=== PATIENT | male | born 1970 | race African-American/Black ===

== ENCOUNTER 2016-09-04 06:13 | Emergency (ER) | payer SELFPAY ==
[~2016-09-04] VITALS: Ht 185.4 cm; Wt 85.0 kg
[2016-09-04 06:16] VITALS: BP 160/106; PULSE 77; RESP 16; TEMP 98; O2SAT 98
[2016-09-04] MEDS ORDERED: SODIUM CHLOR 0.9% 1000 ML INJ 1,000 ML IV SCH (06:16)
--- NOTE | 2016-09-04 06:19 | PD ---
HPI Chief Complaint: abdominal pain Time Seen by Provider: 06:15 Travel History International Travel<30 days: No Contact w/Intl Traveler<30days: No Traveled to known affect area: No History of Present Illness HPI 45-year-old male with history of pancreatitis, previous ulcer, presents to the ER today for 2 days history of right sided abdominal pains which she currently rates at a 10 out of 10 at its worse, worse with movement and touch, that started on its own. He denies any nausea, vomiting, fevers, diarrhea, or other symptoms. He did notice that he has been having some blood in his stools when he makes a bowel movement for the past month. He denies any other issues. Modifying Factors: None Associated Signs & Symptoms: Right sided abdominal pains Risk Factors: None PFSH Past Medical History Arthritis: Yes Autoimmune Disease: No Blood Disorders: No Anxiety: No Heart Rhythm Problems: No Cancer: No Cardiovascular Problems: Yes High Cholesterol: No Chemotherapy: No Congestive Heart Failure: No Cerebrovascular Accident: No Diabetes: No Diminished Hearing: No Endocrine: No Gastrointestinal Disorders: No GERD: No Glaucoma: No Genitourinary: No Hepatitis: No Hiatal Hernia: No Hypertension: Yes Immune Disorder: No Implanted Vascular Access Dvce: No Musculoskeletal: No Neurologic: Yes (DT'S) Psychiatric: No Reproductive: No Respiratory: No Myocardial Infarction: No Pancreatitis: Yes Radiation Therapy: No Seizures: Yes Thyroid Disease: No Ulcer: Yes PNEUMOCCOCAL Vaccine (Year): 2 Past Surgical History Genitourinary Surgery: No Oral Surgery: Yes (JAW) Pacemaker: No Other Surgery: No Social History Alcohol Use: Yes (1 CASE BEER DAILY-HAD 12 6OZ CANS OF BEERS TONIGHT) Tobacco Use: Yes (1 PPD) Substance Use: No Allergies-Medications (Allergen,Severity, Reaction): Coded Allergies: Penicillin (Verified Allergy, Mild, Rash, 09/04/16) Naproxen (Verified Adverse Reaction, Severe, N/V, 09/04/16) Reported Meds & Prescriptions Reported Meds & Active Scripts Active No Active Prescriptions or Reported Medications Review of Systems Except as stated in HPI: all other systems reviewed are Neg Physical Exam Narrative GENERAL: Well-developed middle age -[place] male patient currently in mild distress. SKIN: Focused skin assessment warm/dry. HEAD: Atraumatic. Normocephalic. EYES: Pupils equal and round. No scleral icterus. No injection or drainage. ENT: No nasal bleeding or discharge. Mucous membranes pink and moist. NECK: Trachea midline. No JVD. CARDIOVASCULAR: Regular rate and rhythm. No murmur appreciated. RESPIRATORY: No accessory muscle use. Clear to auscultation. Breath sounds equal bilaterally. GASTROINTESTINAL: Abdomen soft, right sided abdominal tenderness without guarding or rebound, nondistended. Hepatic and splenic margins not palpable. MUSCULOSKELETAL: No obvious deformities. No clubbing. No cyanosis. No edema. RECTAL EXAM: No masses or tenderness, stool is brown. Hemoccult negative. NEUROLOGICAL: Awake and alert. No obvious cranial nerve deficits. Motor grossly within normal limits. Normal speech. PSYCHIATRIC: Appropriate mood and affect; insight and judgment normal. Data Data Last Documented VS Vital Signs Date Time Temp Pulse Resp B/P Pulse Ox O2 Delivery O2 Flow Rate FiO2 09/04/16 06:21 98 Room Air 09/04/16 06:16 98.0 77 16 160/106 Orders Complete Blood Count With Diff (09/04/16 06:16) Comprehensive Metabolic Panel (09/04/16 06:16) Lipase (09/04/16 06:16) Urinalysis - C+S If Indicated (09/04/16 06:16) Ct Abd/Pel W Iv Contrast(Rout) (09/04/16 06:16) Iv Access Insert/Monitor (09/04/16 06:16) Ecg Monitoring (09/04/16 06:16) Oximetry (09/04/16 06:16) Ondansetron Inj (Zofran Inj) (09/04/16 06:30) Sodium Chlor 0.9% 1000 Ml Inj (Ns 1000 M (09/04/16 06:16) Sodium Chloride 0.9% Flush (Ns Flush) (09/04/16 06:30) Hydromorphone Pf Inj (Dilaudid Pf Inj) (09/04/16 06:30) Labs Laboratory Tests Test 09/04/16 06:22 White Blood Count 5.0 TH/MM3 Red Blood Count 3.90 MIL/MM3 Hemoglobin 12.7 GM/DL Hematocrit 36.5 % Mean Corpuscular Volume 93.5 FL Mean Corpuscular Hemoglobin 32.5 PG Mean Corpuscular Hemoglobin 34.8 % Concent Red Cell Distribution Width 13.3 % Platelet Count 263 TH/MM3 Mean Platelet Volume 7.7 FL Neutrophils (%) (Auto) 49.1 % Lymphocytes (%) (Auto) 34.2 % Monocytes (%) (Auto) 13.1 % Eosinophils (%) (Auto) 3.0 % Basophils (%) (Auto) 0.6 % Neutrophils # (Auto) 2.5 TH/MM3 Lymphocytes # (Auto) 1.7 TH/MM3 Monocytes # (Auto) 0.7 TH/MM3 Eosinophils # (Auto) 0.1 TH/MM3 Basophils # (Auto) 0.0 TH/MM3 CBC Comment DIFF FINAL Differential Comment MDM Medical Decision Making Medical Screen Exam Complete: Yes Emergency Medical Condition: Yes Medical Record Reviewed: Yes Interpretation(s) Laboratory Tests Test 09/04/16 06:22 Red Blood Count 3.90 MIL/MM3 (4.50-5.90) Hemoglobin 12.7 GM/DL (13.0-17.0) Hematocrit 36.5 % (39.0-51.0) Monocytes (%) (Auto) 13.1 % (0.0-8.0) Differential Diagnosis Right sided abdominal painsrenal colic versus pyelonephritis versus cholecystitis versus musculoskeletal versus appendicitis Narrative Course Lab work and CAT scans were ordered for the patient. Pain medications, IV fluids and nausea medications were ordered for the patient. HemaPrompt Point of Care Internal Pos. & Neg. Controls: Passed Fecal Specimen Occult Blood: Negative Physician Communication Physician Communication Case is signed out to oncoming physician, Dr. Murcia, awaiting workup and CAT scan. Disposition based on workup. Diagnosis Primary Impression: Abdominal pain Scripts No Active Prescriptions or Reported Meds Shantanu Pickett MD September 04, 2016 06:18
[2016-09-04 06:21] VITALS: O2SAT 98
[2016-09-04] MEDS ORDERED: SODIUM CHLORIDE 0.9% FLUSH 10 ML FLUSH IV FLUSH PRN (06:30)
[2016-09-04] MEDS ORDERED: ONDANSETRON HCL 4 MG/2 ML VIAL IVP ONE (06:30)
[2016-09-04] MEDS ORDERED: HYDROmorphone HCL PF 1 MG/ML VIAL IVS ONE (06:30)
[2016-09-04 06:54] LABS: AUTOMATED NEUTROPHIL # 2.5 TH/MM3 (1.8-7.7); BASOPHIL % 0.6 % (0.0-2.0); EOSINOPHIL # 0.1 TH/MM3 (0-0.4); HEMATOCRIT 36.5 % (39.0-51.0); HEMO FLAGS DIFF FINAL; LYMPH % 34.2 % (9.0-44.0); LYMPHOCYTE # 1.7 TH/MM3 (1.0-4.8); MEAN CELL VOLUME 93.5 FL (80.0-100.0); MEAN CORPUSCULAR HEMOGLOBIN 32.5 PG (27.0-34.0); MEAN CORPUSCULAR HGB CONC 34.8 % (32.0-36.0); MONO % 13.1 % (0.0-8.0); NEUT % 49.1 % (16.0-70.0); PLATELET COUNT 263 TH/MM3 (150-450); RED CELL DISTRIBUTION WIDTH 13.3 % (11.6-17.2)
[2016-09-04 07:01] LABS: BLOOD, URINE NEG (NEG); GLUCOSE,URINE NEG (NEG); KETONE, URINE NEG (NEG); NITRITE,URINE NEG (NEG); PH, URINE 5.5 (5.0-8.5); URINE COLOR COLORLESS (YELLW/STRAW)
[2016-09-04 07:12] LABS: COMMENT (UR) CULT NOT INDICATED; CULTURE IF INDICATED CULT NOT INDICATED
[2016-09-04 07:14] LABS: ALT (GPT) 22 U/L (12-78); ANION GAP 10 MEQ/L (5-15); AST (GOT) 50 U/L (15-37); BICARBONATE 23.7 MEQ/L (21.0-32.0); BLOOD UREA NITROGEN 14 MG/DL (7-18); CHLORIDE 111 MEQ/L (98-107); GLOMERULAR FILTRATION RATE 106 ML/MIN (>89); POTASSIUM 3.8 MEQ/L (3.5-5.1); SODIUM (NA) 145 MEQ/L (136-145)
[2016-09-04 07:17] LABS: ALKALINE PHOSPHATASE 99 U/L (45-117); TOTAL BILIRUBIN ADULT 0.1 MG/DL (0.2-1.0)
[2016-09-04] MEDS ORDERED: IOHEXOL 350 MG/ML 10 ML VIAL (for RAD DIAG) IV ONE (08:06)
--- NOTE | 2016-09-04 08:19 | RADRPT ---
EXAM DATE/TIME: 09/04/2016 08:03 [facility] COMPARISON: No previous studies available for comparison. INDICATIONS : Right sided abdominal pain X 2 days; blood in stools for one month. IV CONTRAST: 96 cc Omnipaque 350 (iohexol) IV ORAL CONTRAST: No oral contrast ingested. RADIATION DOSE: 9.96 CTDIvol (mGy) MEDICAL HISTORY : Pancreatitis. Hypertension. Seizures.ETOH abuse SURGICAL HISTORY : None. ENCOUNTER: Initial ACUITY: 2 days PAIN SCALE: 10/10 LOCATION: Right abdomen TECHNIQUE: Volumetric scanning of the abdomen and pelvis was performed. Using automated exposure control and ad justment of the mA and/or kV according to patient size, radiation dose was kept as low as reasonably achievable to obtain optimal diagnostic quality images. FINDINGS: LOWER LUNGS: The visualized lower lungs are clear. LIVER: Homogeneous density without lesion. There is no dilation of the biliary tree. No calcified gallston es. SPLEEN: Normal size without lesion. PANCREAS: Within normal limits. KIDNEYS: Normal in size and shape. There is no mass, stone or hydronephrosis. ADRENAL GLANDS: Within normal limits. VASCULAR: There is no aortic aneurysm. BOWEL/MESENTERY: The stomach, small bowel, and colon demonstrate no acute abnormality. There is no free intraperitone al air or fluid. ABDOMINAL WALL: Within normal limits. RETROPERITONEUM: There is no lymphadenopathy. BLADDER: No wall thickening or mass. REPRODUCTIVE: Within normal limits. INGUINAL: There is no lymphadenopathy or hernia. MUSCULOSKELETAL: Within normal limits for patient age. CONCLUSION: 1. No acute inflammatory process. Víctor Millan MD on September 04, 2016 at 8:14 Board Certified Radiologist. This report was verified electronically.
--- NOTE | 2016-09-04 08:24 | PD ---
Physical Exam Date Seen by Provider: September 04, 2016 Time Seen by Provider: 08:22 Narrative 45-year-old male came to the emergency room with history of right sided abdominal pain. He was seen by the previous ER physician. Please refer to her notes for details. Sign out was to follow-up on the labs and the CAT scan. Blood test and urinalysis are within normal limit. CAT scan was just done and resulted in is unremarkable as well. I will discharge him home at this point. Data Data Last Documented VS Vital Signs Date Time Temp Pulse Resp B/P Pulse Ox O2 Delivery O2 Flow Rate FiO2 09/04/16 06:21 98 Room Air 09/04/16 06:16 98.0 77 16 160/106 Orders Complete Blood Count With Diff (09/04/16 06:16) Comprehensive Metabolic Panel (09/04/16 06:16) Lipase (09/04/16 06:16) Urinalysis - C+S If Indicated (09/04/16 06:16) Ct Abd/Pel W Iv Contrast(Rout) (09/04/16 06:16) Iv Access Insert/Monitor (09/04/16 06:16) Ecg Monitoring (09/04/16 06:16) Oximetry (09/04/16 06:16) Ondansetron Inj (Zofran Inj) (09/04/16 06:30) Sodium Chlor 0.9% 1000 Ml Inj (Ns 1000 M (09/04/16 06:16) Sodium Chloride 0.9% Flush (Ns Flush) (09/04/16 06:30) Hydromorphone Pf Inj (Dilaudid Pf Inj) (09/04/16 06:30) Iohexol 350 Inj (Omnipaque 350 Inj) (09/04/16 08:06) Labs Laboratory Tests Test 09/04/16 06:22 White Blood Count 5.0 TH/MM3 Red Blood Count 3.90 MIL/MM3 Hemoglobin 12.7 GM/DL Hematocrit 36.5 % Mean Corpuscular Volume 93.5 FL Mean Corpuscular Hemoglobin 32.5 PG Mean Corpuscular Hemoglobin 34.8 % Concent Red Cell Distribution Width 13.3 % Platelet Count 263 TH/MM3 Mean Platelet Volume 7.7 FL Neutrophils (%) (Auto) 49.1 % Lymphocytes (%) (Auto) 34.2 % Monocytes (%) (Auto) 13.1 % Eosinophils (%) (Auto) 3.0 % Basophils (%) (Auto) 0.6 % Neutrophils # (Auto) 2.5 TH/MM3 Lymphocytes # (Auto) 1.7 TH/MM3 Monocytes # (Auto) 0.7 TH/MM3 Eosinophils # (Auto) 0.1 TH/MM3 Basophils # (Auto) 0.0 TH/MM3 CBC Comment DIFF FINAL Differential Comment Urine Color COLORLESS Urine Turbidity CLEAR Urine pH 5.5 Urine Specific [place] 1.003 Urine Protein NEG mg/dL Urine Glucose (UA) NEG mg/dL Urine Ketones NEG mg/dL Urine Occult Blood NEG Urine Nitrite NEG Urine Bilirubin NEG Urine Urobilinogen LESS THAN 2.0 MG/DL Urine Leukocyte Esterase NEG Urine WBC LESS THAN 1 /hpf Microscopic Urinalysis Comment CULT NOT INDICATED Sodium Level 145 MEQ/L Potassium Level 3.8 MEQ/L Chloride Level 111 MEQ/L Carbon Dioxide Level 23.7 MEQ/L Anion Gap 10 MEQ/L Blood Urea Nitrogen 14 MG/DL Creatinine 0.94 MG/DL Estimat Glomerular Filtration 106 ML/MIN Rate Random Glucose 91 MG/DL Calcium Level 8.9 MG/DL Total Bilirubin 0.1 MG/DL Aspartate Amino Transf 50 U/L (AST/SGOT) Alanine Aminotransferase 22 U/L (ALT/SGPT) Alkaline Phosphatase 99 U/L Total Protein 7.4 GM/DL Albumin 3.5 GM/DL Lipase 350 U/L MDM Supervised Visit with FRANCISCA: No Narrative Course 8:28 AM I went to let the patient know about his test results. He asked me about a cough that he has had for months. I auscultated the patient and did not hear any end expiratory wheeze. Patient is a smoker and I have recommended him repeatedly for smoking cessation. Diagnosis Primary Impression: Abdominal pain Qualified Code: R10.31 - Right lower quadrant abdominal pain Additional Impressions: Cough Needs smoking cessation education Referrals: Primary Care Physician 2 days Additional Instruction: Please follow-up with your primary care in couple days. He needs to quit smoking in order for your cough to get better. Smoking is injurious to your health and can cause lung cancer. Med/Other Pt SpecificInfo: No Change to Meds Scripts No Active Prescriptions or Reported Meds Disposition: 01 DISCHARGE HOME Condition: Stable Caleb Murcia MD September 04, 2016 08:24
== END 2016-09-04 08:47 | disposition home or self-care (01) ==
LOC: NEPC 06:13
DX: R10.31 Right lower quadrant pain (principal); R05 Cough; K92.1 Melena; I10 Essential (primary) hypertension; F17.210 Nicotine dependence, cigarettes, uncomplicated; F10.10 Alcohol abuse, uncomplicated
CPT/HCPCS: 74177; 80053; 81001; 83690; 85025; 96374; 96375; 99284; J1170; J2405; J7030; Q9967

== ENCOUNTER 2016-12-20 14:56 | Observation (INO) | payer SELFPAY ==
[2016-12-20] VITALS (7 sets, daily range): BP systolic 123–172; BP diastolic 82–102; PULSE 55–88; RESP 17–20; TEMP 98.2–98.5; O2SAT 97–100
[~2016-12-20] VITALS: Ht 185.4 cm; Wt 61.5 kg
--- NOTE | 2016-12-20 15:11 | PD ---
Physical Exam Date Seen by Provider: Dec 20, 2016 Time Seen by Provider: 15:10 Narrative 46 YOBM C/O WEAKNESS, INCREASED BP AND L ARM PAIN VS REVIEWED WAITING FOR BED PLACEMENT Data Data Last Documented VS Vital Signs Date Time Temp Pulse Resp B/P Pulse Ox O2 Delivery O2 Flow Rate FiO2 12/20/16 15:05 98.4 84 20 123/82 97 Room Air MDM Supervised Visit with FRANCISCA: No Scripts No Active Prescriptions or Reported Meds Condition: Stable Xavi Mckinney Dec 20, 2016 15:11
[2016-12-20] MEDS ORDERED: METO-338 PO (15:56)
--- NOTE | 2016-12-20 16:03 | PD ---
HPI Chief Complaint: Medical Clearance Time Seen by Provider: 16:03 Travel History International Travel<30 days: No Contact w/Intl Traveler<30days: No Traveled to known affect area: No History of Present Illness HPI 46-year-old male with history of CAD, seizures, hypertension, daily alcohol use and one pack of tobacco cigarettes smoking daily, presents to the emergency department today for evaluation of acute onset shortness of breath. 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 He has had numbness in the left upper extremity intermittently for the last few months. Today he went to ride his bike and he came extremely short of breath. He states this is not typical for him. A neighbor contacted 911 and he was brought in for evaluation. Patient states his only complaint right now is the left-sided shoulder pain with intermittent left upper extremity numbness. Denies any injury. No chest pain or tightness. No nausea vomiting. No diaphoresis. No other symptoms to report. PFSH Past Medical History Arthritis: Yes Autoimmune Disease: No Blood Disorders: No Anxiety: No Heart Rhythm Problems: No Cancer: No Cardiovascular Problems: Yes High Cholesterol: No Chemotherapy: No Congestive Heart Failure: No Cerebrovascular Accident: No Diabetes: Yes Patient Takes Glucophage: No Diminished Hearing: No Endocrine: No Gastrointestinal Disorders: No GERD: No Glaucoma: No Genitourinary: No Hepatitis: No Hiatal Hernia: No Hypertension: Yes Immune Disorder: No Implanted Vascular Access Dvce: No Musculoskeletal: No Neurologic: Yes (DT'S) Psychiatric: No Reproductive: No Respiratory: No Myocardial Infarction: No Pancreatitis: Yes Radiation Therapy: No Seizures: Yes Thyroid Disease: No Ulcer: Yes Tetanus Vaccination: < 5 Years PNEUMOCCOCAL Vaccine (Year): 2 ?: Not Past Surgical History Genitourinary Surgery: No Oral Surgery: Yes (JAW) Pacemaker: No Other Surgery: No Social History Alcohol Use: Yes (DAILY) Tobacco Use: Yes (1 PPD) Substance Use: No Allergies-Medications (Allergen,Severity, Reaction): Coded Allergies: penicillin G (Unverified Allergy, Mild, Rash, 12/19/16) naproxen (Unverified Adverse Reaction, Severe, N/V, 12/19/16) Reported Meds & Prescriptions Reported Meds & Active Scripts Active Reported Lopressor (Metoprolol Tartrate) 100 Mg Tab 100 Mg PO BID Review of Systems Except as stated in HPI: all other systems reviewed are Neg Physical Exam Narrative GENERAL: Well-nourished male patient, in no acute distress SKIN: Focused skin assessment warm/dry. HEAD: Atraumatic. Normocephalic. EYES: Pupils equal and round. No scleral icterus. No injection or drainage. ENT: No nasal bleeding or discharge. Mucous membranes pink and moist. NECK: Trachea midline. No JVD. CARDIOVASCULAR: Regular rate and rhythm. No murmur appreciated. RESPIRATORY: No accessory muscle use. Clear to auscultation. Breath sounds equal bilaterally. GASTROINTESTINAL: Abdomen soft, non-tender, nondistended. Hepatic and splenic margins not palpable. MUSCULOSKELETAL: No obvious deformities. No clubbing. No cyanosis. No edema. NEUROLOGICAL: Awake and alert. No obvious cranial nerve deficits. Motor grossly within normal limits. Normal speech. PSYCHIATRIC: Appropriate mood and affect; insight and judgment normal. Data Data Last Documented VS Vital Signs Date Time Temp Pulse Resp B/P Pulse Ox O2 Delivery O2 Flow Rate FiO2 12/20/16 16:46 88 17 146/88 97 Room Air 12/20/16 15:05 98.4 Orders Electrocardiogram (12/20/16 16:03) Basic Metabolic Panel (Bmp) (12/20/16 16:03) Ckmb (Isoenzyme) Profile (12/20/16 16:03) Complete Blood Count With Diff (12/20/16 16:03) Magnesium (Mg) (12/20/16 16:03) Prothrombin Time / Inr (Pt) (12/20/16 16:03) Act Partial Throm Time (Ptt) (12/20/16 16:03) Troponin I (12/20/16 16:03) Chest, Single Ap (12/20/16 16:03) Ecg Monitoring (12/20/16 16:03) Bilateral Bp Monitoring (12/20/16 16:03) Iv Access Insert/Monitor (12/20/16 16:03) Oximetry (12/20/16 16:03) Oxygen Administration (12/20/16 16:03) Sodium Chloride 0.9% Flush (Ns Flush) (12/20/16 16:15) CKMB (12/20/16 16:10) CKMB% (12/20/16 16:10) Admit Order (Ed Use Only) (12/20/16 17:20) Activity Bed Rest With Brp (12/20/16 17:20) Vital Signs (Adult) Q4H (12/20/16 17:20) Cardiac Rhythm .As Directed (12/20/16 17:20) Notify Dr: Other .PRN (12/20/16 17:20) Notify Dr. Parameters (12/20/16 17:20) Resp Oxygen Nasal Cannula (12/20/16 ) Diet Npo (12/21/16 Dinner) Ckmb (Isoenzyme) Profile (12/20/16 19:10) Ckmb (Isoenzyme) Profile (12/20/16 22:10) Troponin I (12/20/16 19:10) Troponin I (12/20/16 22:10) Electrocardiogram (12/20/16 19:40) Electrocardiogram (12/20/16 22:40) ^ Obtain (12/20/16 17:20) Sodium Chloride 0.9% Flush (Ns Flush) (12/20/16 17:30) Sodium Chloride 0.9% Flush (Ns Flush) (12/20/16 21:00) Acetaminophen (Tylenol) (12/20/16 17:30) Ondansetron Inj (Zofran Inj) (12/20/16 17:30) Aspirin Chew (Aspirin Chew) (12/20/16 17:30) Mold Sprayer / Telemetry FAY.Q8H (12/20/16 17:20) Ino Bilateral/Knee High FAY.QSHIFT (12/20/16 17:20) Labs Laboratory Tests Test 12/20/16 16:10 White Blood Count 4.4 TH/MM3 Red Blood Count 4.19 MIL/MM3 Hemoglobin 13.6 GM/DL Hematocrit 40.1 % Mean Corpuscular Volume 95.8 FL Mean Corpuscular Hemoglobin 32.5 PG Mean Corpuscular Hemoglobin 33.9 % Concent Red Cell Distribution Width 13.5 % Platelet Count 258 TH/MM3 Mean Platelet Volume 7.7 FL Neutrophils (%) (Auto) 53.0 % Lymphocytes (%) (Auto) 33.7 % Monocytes (%) (Auto) 11.0 % Eosinophils (%) (Auto) 1.5 % Basophils (%) (Auto) 0.8 % Neutrophils # (Auto) 2.4 TH/MM3 Lymphocytes # (Auto) 1.5 TH/MM3 Monocytes # (Auto) 0.5 TH/MM3 Eosinophils # (Auto) 0.1 TH/MM3 Basophils # (Auto) 0.0 TH/MM3 CBC Comment DIFF FINAL Differential Comment Prothrombin Time 10.4 SEC Prothromb Time International 0.9 RATIO Ratio Activated Partial 27.2 SEC Thromboplast Time Sodium Level 139 MEQ/L Potassium Level 4.3 MEQ/L Chloride Level 107 MEQ/L Carbon Dioxide Level 22.2 MEQ/L Anion Gap 10 MEQ/L Blood Urea Nitrogen 14 MG/DL Creatinine 1.00 MG/DL Estimat Glomerular Filtration 98 ML/MIN Rate Random Glucose 99 MG/DL Calcium Level 8.7 MG/DL Magnesium Level 2.4 MG/DL Total Creatine Kinase 384 U/L Creatine Kinase MB 3.2 NG/ML Creatine Kinase MB % 0.8 % Troponin I LESS THAN 0.02 NG/ML MDM Medical Decision Making Medical Screen Exam Complete: Yes Emergency Medical Condition: Yes Medical Record Reviewed: Yes Differential Diagnosis ACS versus chest wall pain versus pleuritic pain versus visceral pain Narrative Course 46 year old male presents to the ED for evaluation of acute onset shortness of breath and intermittent L shoulder pain and LUE numbness. He appears well and without distress. EKG is reviewed by my attending and unchanged from previous. CBC is without acute concern; BMP is without acute concern; total CK 384; troponin less than 0.02 CXR is without acute concern I have discussed the patient with my attending physician who also reviewed the findings. Pt will be admitted to the [facility] for further evaluation Diagnosis Primary Impression: Atypical chest pain Additional Impressions: Shortness of breath Needs smoking cessation education Condition: Stable AlanizKenisha charlton DERRICK Dec 20, 2016 16:03
[2016-12-20] MEDS ORDERED: SODIUM CHLORIDE 0.9% FLUSH 10 ML FLUSH IVF PRN (16:15)
[2016-12-20 16:21] LABS: AUTOMATED NEUTROPHIL # 2.4 TH/MM3 (1.8-7.7); BASOPHIL % 0.8 % (0.0-2.0); EOSINOPHIL # 0.1 TH/MM3 (0-0.4); EOSINOPHIL % 1.5 % (0.0-4.0); HEMATOCRIT 40.1 % (39.0-51.0); HEMO FLAGS DIFF FINAL; LYMPH % 33.7 % (9.0-44.0); LYMPHOCYTE # 1.5 TH/MM3 (1.0-4.8); MEAN CELL VOLUME 95.8 FL (80.0-100.0); MEAN CORPUSCULAR HEMOGLOBIN 32.5 PG (27.0-34.0); MEAN CORPUSCULAR HGB CONC 33.9 % (32.0-36.0); PLATELET COUNT 258 TH/MM3 (150-450); RED BLOOD COUNT 4.19 MIL/MM3 (4.50-5.90); RED CELL DISTRIBUTION WIDTH 13.5 % (11.6-17.2); WHITE BLOOD COUNT 4.4 TH/MM3 (4.0-11.0)
[2016-12-20 16:27] LABS: APTT (PATIENT) 27.2 SEC (24.3-30.1); INTERNATIONAL NORMALIZED RATIO 0.9 RATIO; PROTHROMBIN TIME - PATIENT 10.4 SEC (9.8-11.6)
[2016-12-20 16:40] LABS: ANION GAP 10 MEQ/L (5-15); BICARBONATE 22.2 MEQ/L (21.0-32.0); BLOOD UREA NITROGEN 14 MG/DL (7-18); CHLORIDE 107 MEQ/L (98-107); GLOMERULAR FILTRATION RATE 98 ML/MIN (>89); MAGNESIUM 2.4 MG/DL (1.5-2.5); POTASSIUM 4.3 MEQ/L (3.5-5.1); SODIUM (NA) 139 MEQ/L (136-145)
[2016-12-20 16:43] LABS: CREATINE KINASE 384 U/L (39-308)
[2016-12-20 16:55] LABS: CKMB 3.2 NG/ML (0.5-3.6)
--- NOTE | 2016-12-20 17:12 | RADRPT ---
EXAM DATE/TIME: 12/20/2016 16:23 [facility] COMPARISON: No previous studies available for comparison. INDICATIONS : Chest pain. MEDICAL HISTORY : Hypertension. Diabetes mellitus type II. Pancreatitis. SURGICAL HISTORY : None. ENCOUNTER: Initial ACUITY: 1 day PAIN SCORE: 7/10 LOCATION: Bilateral chest FINDINGS: A single view of the chest demonstrates the lungs to be symmetrically aerated without evidence of mas s, infiltrate or effusion. The cardiomediastinal contours are unremarkable. Osseous structures are intact. There is an old healed right midclavicular fracture. CONCLUSION: No acute disease. Frankie Syed MD on December 20, 2016 at 17:09 Board Certified Radiologist. This report was verified electronically.
[2016-12-20] MEDS ORDERED: ASPIRIN 81 MG CHEW TAB PO ONE (17:30)
[2016-12-20] MEDS ORDERED: ACETAMINOPHEN 500 MG CPLT PO PRN (17:30)
[2016-12-20] MEDS ORDERED: ONDANSETRON HCL 4 MG/2 ML VIAL IV PRN (17:30)
[2016-12-20] MEDS ORDERED: SODIUM CHLORIDE 0.9% FLUSH 10 ML FLUSH IV FLUSH PRN (17:30)
[2016-12-20 20:37] LABS: CREATINE KINASE 390 U/L (39-308)
[2016-12-20] MEDS: SODIUM CHLORIDE 0.9% FLUSH 10 ML FLUSH IV FLUSH SCH (21:00)
[2016-12-21 00:33] LABS: CREATINE KINASE 346 U/L (39-308)
[2016-12-21 00:45] LABS: CKMB 3.1 NG/ML (0.5-3.6)
[2016-12-21 04:01] VITALS: BP 149/89; PULSE 78; RESP 18; TEMP 98; O2SAT 98
[2016-12-21 08:30] VITALS: PULSE 60
[2016-12-21] MEDS ORDERED: amLODIPine BESYLATE 5 MG TAB PO ONE ×2 (08:30→11:00)
[2016-12-21 08:34] VITALS: BP 187/105; PULSE 70; RESP 16; TEMP 98.2; O2SAT 98
[2016-12-21] MEDS: SODIUM CHLORIDE 0.9% FLUSH 10 ML FLUSH IV FLUSH SCH (08:42)
--- NOTE | 2016-12-21 09:06 | HHI.HP ---
HPI Primary Care Physician No Primary Care Physician Chief Complaint Chest pain History of Present Illness Mr. García is a 46-year-old male patient with a known medical history of hypertension and seizure history who presented to the ED via [facility] with complaints of chest pain and associated shortness of breath. 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 Yesterday around noon patient was doing the laundry at home and complaint of a pain in his midsternal chest, characterized as a "grabbing and holding on" sensation lasting roughly 10 minutes and subsided completely. Does admit to associated shortness of breath, nausea and diaphoresis. Currently patient states that the pain has resolved and now feels soreness in his mid chest area. Pain is reproducible to the left of the inferior aspect of sternum. Denies any similar chest pain in the past. Denies any cardiac history. Denies any recent illness including fever, chills, cough, headache, diarrhea. Review of Systems Consitutional: DENIES: Fever, Chills HEENT: DENIES: Lightheadedness Respiratory: COMPLAINS OF: Shortness of breath, DENIES: Cough Cardiovascular: COMPLAINS OF: Chest pain Gastrointestinal: COMPLAINS OF: Nausea, DENIES: Vomiting Past Family Social History Allergies: Coded Allergies: penicillin G (Unverified Allergy, Mild, Rash, 12/19/16) naproxen (Unverified Adverse Reaction, Severe, N/V, 12/19/16) Past Medical History Hypertension Arthritis Seizure history Tobacco abuse Alcohol abuse Past Surgical History Denies any prior surgery. Reported Medications Takes no medications. Active Ordered Medications Current Medications Medications (Trade) Dose Ordered Sig/Emily Route Start Time Stop Time Status Last Admin (NS Flush) 2 ml UNSCH PRN IVF 12/20/16 16:15 (NS Flush) 2 ml UNSCH PRN IV FLUSH 12/20/16 17:30 (NS Flush) 2 ml BID IV FLUSH 12/20/16 21:00 12/21/16 08:42 (Tylenol) 500 mg Q4H PRN PO 12/20/16 17:30 (Zofran Inj) 4 mg Q6H PRN IV 12/20/16 17:30 Family History Maternal medical history significant for SC at the age of 7171 years old. Paternal medical history significant for SC at the age of 7070 years old. Social History Patient is . Admits to smoking 1 ppd cigarettes for 20 years. Admits to drinking a 12-pack of beer per day. Denies any illicit drug use. Physical Exam Vital Signs Vital Signs Date Time Temp Pulse Resp B/P Pulse Ox O2 Delivery O2 Flow Rate FiO2 12/21/16 08:34 98.2 70 16 187/105 98 12/21/16 04:01 98.0 78 18 149/89 98 12/20/16 23:54 99 12/20/16 23:44 98.5 60 18 156/93 99 12/20/16 20:20 98.2 72 18 172/102 100 12/20/16 19:03 100 12/20/16 18:03 55 17 158/102 100 Room Air 12/20/16 16:46 88 17 146/88 97 Room Air 12/20/16 15:05 98.4 84 20 123/82 97 Room Air Physical Exam GENERAL: Well-nourished, well-developed male patient lying in bed comfortably in nad. SKIN: Warm and dry. No rash. HEENT: Atraumatic. Normocephalic. Pupils equal and round. No scleral icterus. No injection or drainage. No nasal bleeding or discharge. Mucous membranes pink and moist. NECK: Trachea midline. No JVD. CARDIOVASCULAR: Regular rate and rhythm. RESPIRATORY: No accessory muscle use. Clear to auscultation. Breath sounds equal bilaterally. GASTROINTESTINAL: Abdomen soft, non-tender, nondistended. MUSCULOSKELETAL: Extremities without clubbing, cyanosis, or edema. No obvious deformities. NEUROLOGICAL: Awake and alert. No obvious cranial nerve deficits. Motor grossly within normal limits. Five out of 5 muscle strength in the arms and legs. Normal speech. PSYCHIATRIC: Appropriate mood and affect; insight and judgment normal. Laboratory Laboratory Tests Test 12/20/16 12/20/16 12/20/16 16:10 18:40 23:30 White Blood Count 4.4 Red Blood Count 4.19 Hemoglobin 13.6 Hematocrit 40.1 Mean Corpuscular Volume 95.8 Mean Corpuscular Hemoglobin 32.5 Mean Corpuscular Hemoglobin 33.9 Concent Red Cell Distribution Width 13.5 Platelet Count 258 Mean Platelet Volume 7.7 Neutrophils (%) (Auto) 53.0 Lymphocytes (%) (Auto) 33.7 Monocytes (%) (Auto) 11.0 Eosinophils (%) (Auto) 1.5 Basophils (%) (Auto) 0.8 Neutrophils # (Auto) 2.4 Lymphocytes # (Auto) 1.5 Monocytes # (Auto) 0.5 Eosinophils # (Auto) 0.1 Basophils # (Auto) 0.0 CBC Comment DIFF FINAL Differential Comment Prothrombin Time 10.4 Prothromb Time International 0.9 Ratio Activated Partial 27.2 Thromboplast Time Sodium Level 139 Potassium Level 4.3 Chloride Level 107 Carbon Dioxide Level 22.2 Anion Gap 10 Blood Urea Nitrogen 14 Creatinine 1.00 Estimat Glomerular Filtration 98 Rate Random Glucose 99 Calcium Level 8.7 Magnesium Level 2.4 Total Creatine Kinase 384 390 346 Creatine Kinase MB 3.2 3.0 3.1 Creatine Kinase MB % 0.8 0.8 0.9 Troponin I LESS THAN 0.02 LESS THAN 0.02 LESS THAN 0.02 Result Diagram: 12/20/16 1610 12/20/16 1610 Imaging Last 24 hours Impressions Chest X-Ray 12/20/16 1603 Signed Impressions: Service Date/Time: Tuesday, December 20, 2016 16:23 - CONCLUSION: No acute disease. Frankie Syed MD Assessment and Plan Assessment and Plan * Atypical chest pain: Admitted to chest pain center. Serial EKGs and troponins ordered for ruling out purposes. Troponins negative. EKG showing NSR, with LVH and inverted t-waves in anterior leads. Patient will be seen by Dr. Thomas in the chest pain center. Nuclear ETT has been ordered and will be performed. If no signs of ischemia present patient will be discharged home and encouraged to follow up with PCP in the outpatient setting. * Hypertension: Patient states he does not take any home BP medications. Elevated on presentation. Will prescribe amlodipine 5 mg PO daily. * Seizure history: Patient states his last seizure was 4 months ago. Denies any previous work up or medications for his seizure disorder. Encouraged to follow up with PCP in the outpatient setting once discharged. Encouraged not to drive until cleared by MD. * Tobacco abuse: Encouraged cessation. * Alcohol abuse: Encouraged cessation. Patient is stable at this time and agreeable to the plan. Germán Mancia Dec 21, 2016 09:06
--- NOTE | 2016-12-21 10:47 | TR ---
Date Performed: 12/21/2016 Time Performed: 10:16:44 DOCTOR: Roberto Thomas DRUG LIST: CLINICAL HISTORY: REASON FOR TEST: REASON FOR ENDING: OBSERVATION: CONCLUSION: Arben protocol attempted test stopped secondary to elevated BP. Target heart rate no t met. No repro chest discomfort. Maximum JN=900 % Target HR Achieved=71.0% Maximum AK=163/114 Total Exercise Time=6:45 COMMENTS: Conclusion: Normal treadmill exercise. No evidence of ischemia. test is submaximal
[2016-12-21] MEDS ORDERED: REGADENOSON INJ 0.4 MG/5 ML SYR ONE (11:48)
[2016-12-21 12:23] VITALS: BP 181/91; PULSE 56; RESP 16; TEMP 97.4; O2SAT 98
--- NOTE | 2016-12-21 12:29 | RADRPT ---
EXAM DATE/TIME: 12/21/2016 09:28 [facility] COMPARISON: No previous studies available for comparison. INDICATIONS : Mid chest pain with shortness of breath for three days. Angina. DOSE: 26 mCi Tc99m Myoview at stress. 8.7 mCi Tc99m Myoview at rest. 0.4 mg Lexiscan STRESS SYMPTOMS: Chest pain and dyspnea. EJECTION FRACTION: 44% MEDICAL HISTORY : Hypertension. Cardiovascular disease SURGICAL HISTORY : Jaw. ENCOUNTER: Initial ACUITY: 3 days PAIN SCALE: 7/10 LOCATION: Midsternal chest TECHNIQUE: The patient underwent pharmacologic stress with infusion of prescribed dose. Continuous ECG tracing was monitored during stress. Gated SPECT imaging was performed after stress and conventional SPECT i maging was performed at rest. The examination was performed on a SPECT/CT scanner, both attenuation and non-corrected datasets were reviewed. FINDINGS: DISTRIBUTION: The maximum perfused segment at stress is in the inferior and wall. PERFUSION STUDY: The pattern of perfusion at stress is within normal limits. GATED STUDY: There is intact wall motion and thickening without hypokinetic or dyskinetic segments. CONCLUSION: The exam would suggest some degree of left ventricular dysfunction. The EF was estimated at 44%. No d efinite focal wall motion abnormality is seen. No reversible perfusion defect to indicate stress-javier kin myocardial ischemia. RISK CATEGORY: Intermediate (1-3% Annual Mortality Rate) Osvaldo Diaz MD on December 21, 2016 at 12:25 Board Certified Radiologist. This report was verified electronically.
[2016-12-21] MEDS ORDERED: cloNIDine HCL 0.1 MG TAB PO PRN (13:00)
[2016-12-21 13:22] VITALS: BP 160/90
--- NOTE | 2016-12-21 14:14 | HHI.DCPOC ---
Discharge Care Plan Diagnosis: (1) Atypical chest pain (2) Hypertension (3) Tobacco abuse (4) Alcohol abuse Goals to Promote Your Health * To prevent worsening of your condition and complications * To maintain your health at the optimal level Directions to Meet Your Goals Take your medications as prescribed Follow your dietary instruction Follow activity as directed Keep your appointments as scheduled Take your immunizations and boosters as scheduled If your symptoms worsen call your PCP, if no PCP go to Urgent Care Center or Emergency Room Smoking is Dangerous to Your Health. Avoid second hand smoke Call the 24-hour hour crisis hotline for domestic abuse at Germán Mancia Dec 21, 2016 14:14
--- NOTE | 2016-12-21 14:51 | TR ---
Date Performed: 12/21/2016 Time Performed: 11:12:58 DOCTOR: Roberto Thomas DRUG LIST: CLINICAL HISTORY: REASON FOR TEST: REASON FOR ENDING: OBSERVATION: CONCLUSION: Lexiscan stress test was performed under standard four minute protocol. Radionuclid e was injected one minute prior to ending the test. No electrocardiographic abormalities were present to suggest ischemia. Nuclear imaging and interpretation are pending. COMMENTS:
--- NOTE | 2016-12-21 15:04 | EKG ---
Date Performed: 12/20/2016 Time Performed: 23:52:58 PTAGE: 46 years EKG: Sinus rhythm MODERATE INTRAVENTRICULAR CONDUCTION DELAY MODERATE VOLTAGE CRITERIA FOR LVH, CONSIDER NORMAL VARIAN T ST DEVIATION AND MODERATE T-WAVE ABNORMALIty ABNORMAL ECG PREVIOUS TRACING : 12/20/2016 20.54 Since previous tracing, no significant change noted DOCTOR: Roberto Thomas Interpretating Date/Time 12/21/2016 15:04:06
--- NOTE | 2016-12-21 15:10 | EKG ---
Date Performed: 12/20/2016 Time Performed: 20:54:41 PTAGE: 46 years EKG: Sinus rhythm WITH OCCASIONAL SUPRAVENTRICULAR PREMATURE COMPLEXES MODERATE INTRAVENTRICULAR CONDUCTION DELAY VOLT AGE CRITERIA FOR LVH NONSPECIFIC ST & T-WAVE ABNORMALITY ABNORMAL ECG PREVIOUS TRACING : 12/20/2016 18.55 Since previous tracing, no significant change noted DOCTOR: Roberto Thomas Interpretating Date/Time 12/21/2016 15:09:17
--- NOTE | 2016-12-21 15:13 | EKG ---
Date Performed: 12/20/2016 Time Performed: 18:55:07 PTAGE: 46 years EKG: Sinus rhythm WITH SINUS ARRHYTHMIA BORDERLINE RIGHT AXIS DEVIATION MODERATE INTRAVENTRICULAR CONDUCTION DELAY VOL TAGE CRITERIA FOR LVH NONSPECIFIC ST & T-WAVE ABNORMALITY ABNORMAL ECGPREVIOUS TRACING : 2016 16.44 Since previous tracing, no significant change noted DOCTOR: Roberto Thomas Interpretating Date/Time 12/21/2016 15:11:53
--- NOTE | 2016-12-21 15:15 | EKG ---
Date Performed: 12/20/2016 Time Performed: 16:44:29 PTAGE: 46 years EKG: Sinus rhythm WITH SINUS ARRHYTHMIA MODERATE INTRAVENTRICULAR CONDUCTION DELAY MODERATE VOLTAGE CRITERIA FOR LVH, CONSIDER NORMAL VARIANT ST DEVIATION AND MODERATE T-WAVE ABNORMALITY, CONSIDER LATERAL ISCHEMIA ABNOR MAL ECG NO PREVIOUS TRACING DOCTOR: Roberto Thomas Interpretating Date/Time 12/21/2016 15:14:11
== END 2016-12-21 15:03 | disposition home or self-care (01) ==
LOC: NEPD 14:56 → NEDA 17:24 → NEPHCDU 19:44
PROVIDERS: ADMIT Internal Medicine Cardiovascular Disease; ATTEND Internal Medicine Cardiovascular Disease
DX: R07.89 Other chest pain (principal); I10 Essential (primary) hypertension; F10.10 Alcohol abuse, uncomplicated; R06.02 Shortness of breath; I25.10 Atherosclerotic heart disease of native coronary artery without angina pectoris; E11.9 Type 2 diabetes mellitus without complications; R20.0 Anesthesia of skin; M25.512 Pain in left shoulder; M19.90 Unspecified osteoarthritis, unspecified site; F17.200 Nicotine dependence, unspecified, uncomplicated; R94.31 Abnormal electrocardiogram [ECG] [EKG]; R56.9 Unspecified convulsions; Z79.899 Other long term (current) drug therapy
CPT/HCPCS: 71010; 78452; 80048; 82550; 82552; 83735; 84484; 85025; 85610; 85730; 93005; 93017; 99285; A9502; G0378; J2785

== ENCOUNTER 2017-05-24 17:17 | Observation (INO) | payer SELFPAY ==
[~2017-05-24] VITALS: Ht 185.4 cm; Wt 61.5 kg
[2017-05-24 17:30] VITALS: BP 109/68; PULSE 104; RESP 20; TEMP 98.2; O2SAT 97
[2017-05-24 17:55] VITALS: BP 106/72; PULSE 88; RESP 20; O2SAT 97
[2017-05-24] MEDS ORDERED: SODIUM CHLORIDE 0.9% FLUSH 10 ML FLUSH IVF PRN (18:00)
--- NOTE | 2017-05-24 18:09 | PD ---
HPI Chief Complaint: Cold / Flu Symptoms Time Seen by Provider: 17:42 Travel History International Travel<30 days: No Contact w/Intl Traveler<30days: No Traveled to known affect area: No History of Present Illness HPI The patient's 46 years old and reports generalized aches and pains involving the chest and shoulders elbows and wrist and forearm for the past 2 weeks or so. He reports coughing spells in the mornings associated with copious phlegm production. Subjective fever is reported. No hemoptysis. He denies shortness of breath. The symptoms are worse at night. PFSH Past Medical History Arthritis: Yes Autoimmune Disease: No Blood Disorders: No Anxiety: No Heart Rhythm Problems: Yes (hypertension) Cancer: No Cardiac Catheterization: No Cardiovascular Problems: Yes (HTN) High Cholesterol: No Chemotherapy: No Congestive Heart Failure: No Cerebrovascular Accident: Yes Diabetes: Yes Diminished Hearing: No Endocrine: No Gastrointestinal Disorders: No GERD: No Glaucoma: No Genitourinary: No Hepatitis: No Hiatal Hernia: No Hypertension: Yes Immune Disorder: No Implanted Vascular Access Dvce: No Musculoskeletal: No Neurologic: Yes (DT'S) Psychiatric: No Reproductive: No Respiratory: No Myocardial Infarction: No Pancreatitis: Yes Radiation Therapy: No Seizures: Yes Thyroid Disease: No Ulcer: Yes PNEUMOCCOCAL Vaccine (Year): 2 Past Surgical History Coronary Artery Bypass Graft: No Genitourinary Surgery: No Oral Surgery: Yes (JAW) Pacemaker: No Other Surgery: No Social History Alcohol Use: Yes Tobacco Use: Yes Substance Use: No Allergies-Medications (Allergen,Severity, Reaction): Coded Allergies: penicillin G (Unverified Allergy, Mild, Rash, 12/19/16) naproxen (Unverified Adverse Reaction, Severe, N/V, 12/19/16) Reported Meds & Prescriptions Reported Meds & Active Scripts Active Review of Systems Except as stated in HPI: all other systems reviewed are Neg General / Constitutional: Positive: Fever Physical Exam Narrative GENERAL: 46-year-old male well-nourished well-developed no acute distress SKIN: Warm and dry. HEAD: Atraumatic. Normocephalic. EYES: Pupils equal and round. No scleral icterus. No injection or drainage. ENT: No nasal bleeding or discharge. Mucous membranes pink and moist. NECK: Trachea midline. No JVD. CARDIOVASCULAR: Regular rate and rhythm. RESPIRATORY: Lungs are clear. There is no tachypnea or dyspnea. GASTROINTESTINAL: Abdomen soft, non-tender, nondistended. Hepatic and splenic margins not palpable. MUSCULOSKELETAL: Extremities without clubbing, cyanosis, or edema. No obvious deformities. NEUROLOGICAL: Awake and alert. No obvious cranial nerve deficits. Motor grossly within normal limits. Five out of 5 muscle strength in the arms and legs. Normal speech. PSYCHIATRIC: Appropriate mood and affect; insight and judgment normal. Data Data Last Documented VS Vital Signs Date Time Temp Pulse Resp B/P (MAP) Pulse Ox O2 Delivery O2 Flow Rate FiO2 05/24/17 17:55 98 Room Air 05/24/17 17:55 88 20 106/72 (83) 05/24/17 17:30 98.2 Orders Orders Electrocardiogram (05/24/17 17:47) Basic Metabolic Panel (Bmp) (05/24/17 17:47) Complete Blood Count With Diff (05/24/17 17:47) Chest, Single Ap (05/24/17 17:47) Ecg Monitoring (05/24/17 17:47) Iv Access Insert/Monitor (05/24/17 17:47) Oximetry (05/24/17 17:47) Sodium Chloride 0.9% Flush (Ns Flush) (05/24/17 18:00) Magnesium (Mg) (05/24/17 18:37) Prothrombin Time / Inr (Pt) (05/24/17 18:37) Act Partial Throm Time (Ptt) (05/24/17 18:37) Troponin I (05/24/17 18:37) Labs Laboratory Tests Test 05/24/17 17:50 White Blood Count 6.3 TH/MM3 Red Blood Count 4.15 MIL/MM3 Hemoglobin 12.9 GM/DL Hematocrit 37.4 % Mean Corpuscular Volume 90.2 FL Mean Corpuscular Hemoglobin 31.2 PG Mean Corpuscular Hemoglobin Concent 34.5 % Red Cell Distribution Width 13.8 % Platelet Count 262 TH/MM3 Mean Platelet Volume 8.1 FL Neutrophils (%) (Auto) 60.4 % Lymphocytes (%) (Auto) 23.5 % Monocytes (%) (Auto) 13.8 % Eosinophils (%) (Auto) 1.9 % Basophils (%) (Auto) 0.4 % Neutrophils # (Auto) 3.8 TH/MM3 Lymphocytes # (Auto) 1.5 TH/MM3 Monocytes # (Auto) 0.9 TH/MM3 Eosinophils # (Auto) 0.1 TH/MM3 Basophils # (Auto) 0.0 TH/MM3 CBC Comment DIFF FINAL Differential Comment Blood Urea Nitrogen 16 MG/DL Creatinine 1.01 MG/DL Random Glucose 93 MG/DL Calcium Level 9.3 MG/DL Sodium Level 139 MEQ/L Potassium Level 4.2 MEQ/L Chloride Level 105 MEQ/L Carbon Dioxide Level 25.8 MEQ/L Anion Gap 8 MEQ/L Estimat Glomerular Filtration Rate 97 ML/MIN MDM Medical Decision Making Medical Screen Exam Complete: Yes Emergency Medical Condition: Yes Medical Record Reviewed: Yes Differential Diagnosis NSTEMI, unstable angina, coronary vasospasm, PE, PTX, aortic dissection, pericarditis, myocarditis, endocarditis, PNA, esophageal disease, aneurysm, musculoskeletal etiologies, anxiety, cocaine/sympathomimetic abuse Narrative Course CBC & BMP Diagram 05/24/17 17:50 EKG is sinus rhythm with ST elevations in multiple leads which are stable, T- wave inversions are present in the lateral precordial leads which appear new. The patient has a nuclear medicine stress test from about 6 months prior revealing possible left ventricular dysfunction with an EF of 44%. Because of this troponin was added on. case d/w oncoming provider who will follow up with blood work and disposition patient appropriately. Osvaldo Soto MD May 24, 2017 18:09
[2017-05-24 18:13] LABS: AUTOMATED NEUTROPHIL # 3.8 TH/MM3 (1.8-7.7); BASOPHIL % 0.4 % (0.0-2.0); EOSINOPHIL # 0.1 TH/MM3 (0-0.4); EOSINOPHIL % 1.9 % (0.0-4.0); HEMATOCRIT 37.4 % (39.0-51.0); HEMOGLOBIN 12.9 GM/DL (13.0-17.0); LYMPH % 23.5 % (9.0-44.0); LYMPHOCYTE # 1.5 TH/MM3 (1.0-4.8); MEAN CELL VOLUME 90.2 FL (80.0-100.0); MEAN CORPUSCULAR HEMOGLOBIN 31.2 PG (27.0-34.0); MEAN CORPUSCULAR HGB CONC 34.5 % (32.0-36.0); MEAN PLATELET VOLUME 8.1 FL (7.0-11.0); MONO % 13.8 % (0.0-8.0); MONOCYTE # 0.9 TH/MM3 (0-0.9); NEUT % 60.4 % (16.0-70.0); PLATELET COUNT 262 TH/MM3 (150-450); RED BLOOD COUNT 4.15 MIL/MM3 (4.50-5.90); RED CELL DISTRIBUTION WIDTH 13.8 % (11.6-17.2); WHITE BLOOD COUNT 6.3 TH/MM3 (4.0-11.0)
--- NOTE | 2017-05-24 18:20 | RADRPT ---
EXAM DATE/TIME: 05/24/2017 17:56 [facility] COMPARISON: CHEST SINGLE AP, December 20, 2016, 16:23. INDICATIONS : Chest pain. MEDICAL HISTORY : Hypertension. Diabetes mellitus type II. Pancreatitis. SURGICAL HISTORY : None. ENCOUNTER: Initial ACUITY: 3 weeks PAIN SCORE: 5/10 LOCATION: Right chest FINDINGS: A single view of the chest demonstrates the lungs to be symmetrically aerated without evidence of mas s, infiltrate or effusion. The cardiomediastinal contours are unremarkable. Osseous structures are intact. CONCLUSION: Normal examination. Rudolph Roman Jr., MD on May 24, 2017 at 18:18 Board Certified Radiologist. This report was verified electronically.
[2017-05-24 18:41] LABS: BICARBONATE 25.8 MEQ/L (21.0-32.0); CALCIUM 9.3 MG/DL (8.5-10.1); CREATININE 1.01 MG/DL (0.60-1.30)
[2017-05-24 19:04] LABS: MAGNESIUM 2.2 MG/DL (1.5-2.5); TROPONIN I LESS THAN 0.02 NG/ML (0.02-0.05)
[2017-05-24 19:07] VITALS: BP 106/68; PULSE 68; RESP 16; O2SAT 99
--- NOTE | 2017-05-24 20:25 | PD ---
Physical Exam Narrative Received sign out from previous provider to follow up troponin and admit to chest pain center. 46yo M with atypical chest pain but concerning changes on EKG. Labs reviewed, no leukocytosis. BMP unremarkable. Troponin negative. CXR negative. Pt has very atypical chest pain but given new changes in EKG such as the TWI V6 and a deeper TWI V5, will do serial EKG and cardiac enzymes to r/o ACS. Pt given acetaminophen for pain. He was already given aspirin and sublingual nitro by [facility]. Pt has no watchguard and poor follow up. Data Data Last Documented VS Vital Signs Date Time Temp Pulse Resp B/P (MAP) Pulse Ox O2 Delivery O2 Flow Rate FiO2 05/24/17 17:55 98 Room Air 05/24/17 17:55 88 20 106/72 (83) 05/24/17 17:30 98.2 Orders Orders Electrocardiogram (05/24/17 17:47) Basic Metabolic Panel (Bmp) (05/24/17 17:47) Complete Blood Count With Diff (05/24/17 17:47) Chest, Single Ap (05/24/17 17:47) Ecg Monitoring (05/24/17 17:47) Iv Access Insert/Monitor (05/24/17 17:47) Oximetry (05/24/17 17:47) Sodium Chloride 0.9% Flush (Ns Flush) (05/24/17 18:00) Magnesium (Mg) (05/24/17 18:37) Prothrombin Time / Inr (Pt) (05/24/17 18:37) Act Partial Throm Time (Ptt) (05/24/17 18:37) Troponin I (05/24/17 18:37) Acetaminophen (Tylenol) (05/24/17 20:30) Admit Order (Ed Use Only) (05/24/17 20:34) Activity Bed Rest With Brp (05/24/17 20:35) Vital Signs (Adult) Q4H (05/24/17 20:35) Cardiac Rhythm .As Directed (05/24/17 20:35) Notify Dr: Other .PRN (05/24/17 20:35) Notify DrRebecca Parameters (05/24/17 20:35) Resp Oxygen Nasal Cannula (05/24/17 ) Ckmb (Isoenzyme) Profile (05/24/17 20:35) Ckmb (Isoenzyme) Profile (05/24/17 23:35) Troponin I (05/24/17 20:35) Troponin I (05/24/17 23:35) Electrocardiogram (05/24/17 20:35) Electrocardiogram (05/24/17 23:35) ^ Obtain (05/24/17 20:35) Sodium Chloride 0.9% Flush (Ns Flush) (05/24/17 20:45) Sodium Chloride 0.9% Flush (Ns Flush) (05/24/17 21:00) Stitch Bonding Machine Drawer In / Telemetry [id number] (05/24/17 20:35) Labs Laboratory Tests Test 05/24/17 17:50 White Blood Count 6.3 TH/MM3 Red Blood Count 4.15 MIL/MM3 Hemoglobin 12.9 GM/DL Hematocrit 37.4 % Mean Corpuscular Volume 90.2 FL Mean Corpuscular Hemoglobin 31.2 PG Mean Corpuscular Hemoglobin Concent 34.5 % Red Cell Distribution Width 13.8 % Platelet Count 262 TH/MM3 Mean Platelet Volume 8.1 FL Neutrophils (%) (Auto) 60.4 % Lymphocytes (%) (Auto) 23.5 % Monocytes (%) (Auto) 13.8 % Eosinophils (%) (Auto) 1.9 % Basophils (%) (Auto) 0.4 % Neutrophils # (Auto) 3.8 TH/MM3 Lymphocytes # (Auto) 1.5 TH/MM3 Monocytes # (Auto) 0.9 TH/MM3 Eosinophils # (Auto) 0.1 TH/MM3 Basophils # (Auto) 0.0 TH/MM3 CBC Comment DIFF FINAL Differential Comment Blood Urea Nitrogen 16 MG/DL Creatinine 1.01 MG/DL Random Glucose 93 MG/DL Calcium Level 9.3 MG/DL Sodium Level 139 MEQ/L Potassium Level 4.2 MEQ/L Chloride Level 105 MEQ/L Carbon Dioxide Level 25.8 MEQ/L Anion Gap 8 MEQ/L Estimat Glomerular Filtration Rate 97 ML/MIN Magnesium Level 2.2 MG/DL Troponin I LESS THAN 0.02 NG/ML MDM Supervised Visit with FRANCISCA: No Diagnosis Primary Impression: OTHER CHEST PAIN Admitting Information Admitting Physician Requests: Observation Jessica Resendiz DO May 24, 2017 20:25
[2017-05-24] MEDS ORDERED: ACETAMINOPHEN 500 MG CPLT PO ONE (20:30)
[2017-05-24] MEDS: SODIUM CHLORIDE 0.9% FLUSH 10 ML FLUSH IV FLUSH SCH (20:44)
[2017-05-24] MEDS ORDERED: SODIUM CHLORIDE 0.9% FLUSH 10 ML FLUSH IV FLUSH PRN (20:45)
[2017-05-24 21:00] VITALS: BP 138/96; PULSE 71; RESP 16; O2SAT 98
[2017-05-24 21:39] LABS: TROPONIN I LESS THAN 0.02 NG/ML (0.02-0.05)
--- NOTE | 2017-05-24 21:56 | EKG ---
Date Performed: 05/24/2017 Time Performed: 18:07:52 PTAGE: 46 years EKG: Sinus rhythm LEFT VENTRICULAR HYPERTROPHY Anterolateral ST elevation Nonspecific T wave changes PREVIOUS TRACING : 12/20/2016 23.52 Compared to prior electrocardiogram, Nonspecific T wa ve changes are now present .The ST elevation is nonspecific and clinical correlation is suggested. In jury cannot be ruled out. DOCTOR: Phil Zhagn Interpretating Date/Time 05/24/2017 21:54:38
[2017-05-24 23:50] VITALS: BP 123/77; PULSE 71; RESP 18; TEMP 96.1; O2SAT 100
[2017-05-25] VITALS (7 sets, daily range): BP systolic 138–144; BP diastolic 82–83; PULSE 62–81; RESP 16–18; TEMP 97.8–98.1; O2SAT 96–99
[2017-05-25 00:07] LABS: TROPONIN I LESS THAN 0.02 NG/ML (0.02-0.05)
[2017-05-25 02:55] LABS: PROTHROMBIN TIME - PATIENT 10.2 SEC (9.8-11.6)
[2017-05-25] MEDS: SODIUM CHLORIDE 0.9% FLUSH 10 ML FLUSH IV FLUSH SCH (09:00)
[2017-05-25] MEDS ORDERED: AMLO10 PO (09:55)
--- NOTE | 2017-05-25 10:05 | HHI.HP ---
HPI Primary Care Physician No Primary Care Physician Chief Complaint Cold symptoms History of Present Illness This is a 46-year-old male with history of hypertension, tobacco abuse, and seizure disorder that presents to ED with complaints of cold symptoms. Patient states I came into the emergency department because of my cold, someone asked if I was having any chest pain and then sent me here. States that he has had body aches for 2 weeks as well as subjective fever and yellow color productive mucus when he coughs. He states 2 days after the symptoms began he began to have a chest discomfort that would be in different areas of his chest. He states it would occur when he would cough or with certain twisting motions. Otherwise had no discomfort. It would last for a couple minutes at most. At times he has felt a little short of breath that has usually been when he was coughing a lot. Denies known sick contacts. He has not traveled. Denies history of CAD and states he was in the hospital for chest pain several months ago. Upon reviewing records he had a nonischemic Lexiscan December 2016. Voices compliance with his blood pressure medication and states he has not had a seizure in years and subsequently has not been on medication for it. States he is very active, works in [employer] and his work is very vigorous and does not have chest discomforts while doing that. Review of Systems Gen.: Subjective fever. Myalgias. Cough. Denies recent travel or sick contacts. HEENT: Patient denies headache, sore throat, difficulty swallowing. Cardiovascular: Has the chest discomfort as mentioned above. Denies sensation of heart beating rapidly or irregularly. No syncope. Denies diaphoresis. Respiratory: At times has become short of breath while coughing a lot. Has had a yellowish color productive cough. Denies inspirational chest discomfort. Denies wheezing or hemoptysis. GI: Patient denies nausea, vomiting, diarrhea, abdominal pain, bloody stools. Musculoskeletal: Has generalized myalgias. Patient denies joint pain or edema. Denies calf pain or edema. Neurovascular: Patient denies numbness, tingling, weakness in extremities. Denies headache. Endocrine: Denies polyuria and polydipsia. Hematologic: Denies easy bruising. Skin: Denies rash or itching. Past Family Social History Allergies: Coded Allergies: penicillin G (Unverified Allergy, Mild, Rash, 8/15/17) naproxen (Unverified Adverse Reaction, Severe, N/V, 12/19/16) Past Medical History Hypertension, tobacco abuse, and seizure disorder however he states his last seizure has been many years ago. Eyes diabetes, hyperlipidemia, and known CAD. Past Surgical History Noncontributory. Reported Medications Reported Meds & Active Scripts Active Active Ordered Medications Current Medications Medications (Trade) Dose Ordered Sig/Emily Route Start Time Stop Time Status Last Admin (NS Flush) 2 ml UNSCH PRN IVF 05/24/17 18:00 (NS Flush) 2 ml UNSCH PRN IV FLUSH 05/24/17 20:45 (NS Flush) 2 ml BID IV FLUSH 05/24/17 21:00 05/24/17 20:44 Family History His father had an SC in his 70s. His mother has had CVAs. Social History Patient smokes one pack of cigars daily for 35 years. He has on average 6 beers per day. Denies illicit drugs. He is . He works as a mixer operator tablets. Physical Exam Vital Signs Vital Signs Date Time Temp Pulse Resp B/P (MAP) Pulse Ox O2 Delivery O2 Flow Rate FiO2 05/25/17 06:54 98.1 62 18 138/82 (100) 98 05/25/17 04:39 97.8 69 16 144/83 (103) 99 05/25/17 04:10 67 05/25/17 02:54 21 05/25/17 00:42 81 05/24/17 23:50 96.1 71 18 123/77 (92) 100 05/24/17 22:05 05/24/17 21:00 71 16 138/96 (110) 98 Room Air 05/24/17 17:55 98 Room Air 05/24/17 17:55 88 20 106/72 (83) 97 Room Air 05/24/17 17:30 98.2 104 20 109/68 (82) 97 Room Air Physical Exam GENERAL: This is a well-nourished, well-developed patient, in no apparent distress. Patient speaks in clear complete sentences. Patient is pleasant. HEENT: Head is atraumatic and normocephalic. Neck is supple without lymphadenopathy and trachea is midline. No JVD or carotid bruits. CARDIOVASCULAR: Regular rate and rhythm without murmurs, gallops, or rubs. RESPIRATORY: Clear to auscultation. Breath sounds equal bilaterally. No wheezes , rales, or rhonchi. Chest wall is tender on the left side this is reproducing a discomfort he has been having. He was also reproduced when he coughed during examination. No use of accessory muscles. GASTROINTESTINAL: Abdomen is nontender, nondistended. Abdomen soft. No obvious pulsatile mass or bruit. No CVA tenderness. Strong femoral pulses bilaterally. Normal bowel sounds in all quadrants. MUSCULOSKELETAL: Patient is moving upper and lower extremities freely. No calf tenderness or edema, no Homans sign. Strong pulses in upper and lower extremities. NEUROLOGICAL: Patient is alert and oriented. Cranial nerves 2-12 are grossly intact. No focal deficits and speech is clear. SKIN: No rash and turgor is normal. Laboratory Laboratory Tests Test 05/24/17 17:50 05/24/17 20:48 05/24/17 23:33 05/25/17 02:32 White Blood Count 6.3 Red Blood Count 4.15 Hemoglobin 12.9 Hematocrit 37.4 Mean Corpuscular Volume 90.2 Mean Corpuscular Hemoglobin 31.2 Mean Corpuscular Hemoglobin Concent 34.5 Red Cell Distribution Width 13.8 Platelet Count 262 Mean Platelet Volume 8.1 Neutrophils (%) (Auto) 60.4 Lymphocytes (%) (Auto) 23.5 Monocytes (%) (Auto) 13.8 Eosinophils (%) (Auto) 1.9 Basophils (%) (Auto) 0.4 Neutrophils # (Auto) 3.8 Lymphocytes # (Auto) 1.5 Monocytes # (Auto) 0.9 Eosinophils # (Auto) 0.1 Basophils # (Auto) 0.0 CBC Comment DIFF FINAL Differential Comment Blood Urea Nitrogen 16 Creatinine 1.01 Random Glucose 93 Calcium Level 9.3 Sodium Level 139 Potassium Level 4.2 Chloride Level 105 Carbon Dioxide Level 25.8 Anion Gap 8 Estimat Glomerular Filtration Rate 97 Magnesium Level 2.2 Troponin I LESS THAN 0.02 LESS THAN 0.02 LESS THAN 0.02 Total Creatine Kinase 222 220 Creatine Kinase MB 1.6 2.3 Prothrombin Time 10.2 Prothromb Time International Ratio 1.0 Activated Partial Thromboplast Time 26.1 Result Diagram: 05/24/17 1750 05/24/17 1750 Imaging Last 24 hours Impressions Chest X-Ray 05/24/17 [id number] Signed Impressions: Service Date/Time: May 17:56 - CONCLUSION: Normal examination. Rudolph Roman Jr., MD Course EKGs are sinus rhythm with ST changes in pattern of LVH. Caprini VTE Risk Assessment Caprini VTE Risk Assessment: No/Low Risk (score <= 1) Caprini Risk Assessment Model Point Value = 1 Point Value = 2 Point Value = 3 Point Value = 5 Age 41-60 Minor surgery BMI > 25 kg/m2 Swollen legs Varicose veins or History of unexplained or recurrent spontaneous Oral contraceptives or hormone replacement Sepsis (< 1 month) Serious lung disease, including pneumonia (< 1 month) Abnormal pulmonary function Acute myocardial infarction Congestive heart failure (< 1 month) History of inflammatory bowel disease Medical patient at bed rest Age 61-74 Arthroscopic surgery Major open surgery (> 45 min) Laparoscopic surgery (> 45 min) Malignancy Confined to bed (> 72 hours) Immobilizing plaster cast Central venous access Age >= 75 History of VTE Family history of VTE Factor V Leiden Prothrombin [id number] Lupus anticoagulant Anticardiolipin antibodies Elevated serum homocysteine Heparin-induced thrombocytopenia Other congenital or acquired thrombophilia Stroke (< 1 month) Elective arthroplasty Hip, pelvis, or leg fracture Acute spinal cord injury (< 1 month) Prophylaxis Regimen Total Risk Factor Score Risk Level Prophylaxis Regimen 0-1 Low Early ambulation 2 Moderate Order ONE of the following: *Sequential Compression Device (SCD) *Heparin 5000 units SQ BID 3-4 Higher Order ONE of the following medications: *Heparin 5000 units SQ TID *Enoxaparin/Lovenox 40 mg SQ daily (WT < 150 kg, CrCl > 30 mL/min) *Enoxaparin/Lovenox 30 mg SQ daily (WT < 150 kg, CrCl > 10-29 mL/min) *Enoxaparin/Lovenox 30 mg SQ BID (WT < 150 kg, CrCl > 30 mL/min) AND/OR *Sequential Compression Device (SCD) 5 or more Highest Order ONE of the following medications: *Heparin 5000 units SQ TID (Preferred with Epidurals) *Enoxaparin/Lovenox 40 mg SQ daily (WT < 150 kg, CrCl > 30 mL/min) *Enoxaparin/Lovenox 30 mg SQ daily (WT < 150 kg, CrCl > 10-29 mL/min) *Enoxaparin/Lovenox 30 mg SQ BID (WT < 150 kg, CrCl > 30 mL/min) AND *Sequential Compression Device (SCD) Assessment and Plan Assessment and Plan * Bronchitis: Patient presented to ED for cold symptoms with yellowish color productive cough, myalgias, and subjective fever. Chest x-ray does not reveal an obvious pneumonia. He'll be started on doxycycline. She quit smoking. Should follow-up with PCP and return to ED for interval issues. * Atypical chest pain: Patient has had a discomfort while coughing and with certain twisting motions. He had serial cardiac enzymes for ruling out purposes. On review records at nonischemic exes scan December 2016 and his symptoms do not appear cardiac. Patient is no further cardiac workup at this time but certainly should return to ED for interval issues. * Hypertension: Patient believes he takes amlodipine. He should continue the medication. * Tobacco abuse: Patient has been counseled on importance of smoking cessation. Patient is stable at this time. He is agreeable to this plan. Germán Mancia May 25, 2017 10:05
--- NOTE | 2017-05-25 11:55 | EKG ---
Date Performed: 05/25/2017 Time Performed: 00:02:33 PTAGE: 46 years EKG: Sinus rhythm WITH SINUS ARRHYTHMIA LEFT VENTRICULAR HYPERTROPHY AND ST-T CHANGE ABNORMAL ECG T WAVE CHANGES ARE M ORE PROMINENT BUT ST UNCHANGED PREVIOUS TRACING : 05/24/2017 20.41 DOCTOR: Ellis Peterson Interpretating Date/Time 05/25/2017 11:54:20
--- NOTE | 2017-05-25 12:00 | EKG ---
Date Performed: 05/24/2017 Time Performed: 20:41:22 PTAGE: 46 years EKG: Sinus rhythm WITH SINUS ARRHYTHMIA MODERATE INTRAVENTRICULAR CONDUCTION DELAY VOLTAGE CRITERIA FOR LVH ST DEVIATI ON AND MODERATE T-WAVE ABNORMALITY, CONSIDER LATERAL ISCHEMIA ABNORMAL ECG PREVIOUS TRACING : 05/24/2017 18.07 DOCTOR: Ellis Peterson Interpretating Date/Time 05/25/2017 11:58:44
[2017-05-25] MEDS ORDERED: DOXY100C PO (12:13)
--- NOTE | 2017-05-25 12:14 | HHI.DCPOC ---
Discharge Care Plan Diagnosis: (1) Atypical chest pain (2) Bronchitis (3) Hypertension (4) Tobacco abuse Goals to Promote Your Health * To prevent worsening of your condition and complications * To maintain your health at the optimal level Directions to Meet Your Goals Take your medications as prescribed Follow your dietary instruction Follow activity as directed Keep your appointments as scheduled Take your immunizations and boosters as scheduled If your symptoms worsen call your PCP, if no PCP go to Urgent Care Center or Emergency Room Smoking is Dangerous to Your Health. Avoid second hand smoke Call the 24-hour hour crisis hotline for domestic abuse at Germán Mancia May 25, 2017 12:13
--- NOTE | 2017-05-25 12:52 | PD.CARD.PN ---
Subjective Subjective Remarks Pt seen and examined and discussed with VITALIY Newell CP following protracted coughing and URI with copious discolored sputum. Problem worse at night when coughing is worse. Objective Medications Current Medications Medications (Trade) Dose Ordered Sig/Emily Route Start Time Stop Time Status Last Admin (NS Flush) 2 ml UNSCH PRN IVF 05/24/17 18:00 (NS Flush) 2 ml UNSCH PRN IV FLUSH 05/24/17 20:45 (NS Flush) 2 ml BID IV FLUSH 05/24/17 21:00 05/25/17 09:00 Vital Signs / I&O Vital Signs Date Time Temp Pulse Resp B/P (MAP) Pulse Ox O2 Delivery O2 Flow Rate FiO2 05/25/17 10:47 96 21 05/25/17 07:50 72 05/25/17 06:54 98.1 62 18 138/82 (100) 98 05/25/17 04:39 97.8 69 16 144/83 (103) 99 05/25/17 04:10 67 05/25/17 02:54 21 05/25/17 00:42 81 05/24/17 23:50 96.1 71 18 123/77 (92) 100 05/24/17 22:05 05/24/17 21:00 71 16 138/96 (110) 98 Room Air 05/24/17 17:55 98 Room Air 05/24/17 17:55 88 20 106/72 (83) 97 Room Air 05/24/17 17:30 98.2 104 20 109/68 (82) 97 Room Air Physical Exam Neck with no JVD or bruit Chest Clear with decreased BS and slight crackles at bases but no RWR CV RSR with no GRM Laboratory Laboratory Tests Test 05/24/17 17:50 05/24/17 20:48 05/24/17 23:33 05/25/17 02:32 White Blood Count 6.3 TH/MM3 Red Blood Count 4.15 MIL/MM3 Hemoglobin 12.9 GM/DL Hematocrit 37.4 % Mean Corpuscular Volume 90.2 FL Mean Corpuscular Hemoglobin 31.2 PG Mean Corpuscular Hemoglobin Concent 34.5 % Red Cell Distribution Width 13.8 % Platelet Count 262 TH/MM3 Mean Platelet Volume 8.1 FL Neutrophils (%) (Auto) 60.4 % Lymphocytes (%) (Auto) 23.5 % Monocytes (%) (Auto) 13.8 % Eosinophils (%) (Auto) 1.9 % Basophils (%) (Auto) 0.4 % Neutrophils # (Auto) 3.8 TH/MM3 Lymphocytes # (Auto) 1.5 TH/MM3 Monocytes # (Auto) 0.9 TH/MM3 Eosinophils # (Auto) 0.1 TH/MM3 Basophils # (Auto) 0.0 TH/MM3 CBC Comment DIFF FINAL Differential Comment Blood Urea Nitrogen 16 MG/DL Creatinine 1.01 MG/DL Random Glucose 93 MG/DL Calcium Level 9.3 MG/DL Sodium Level 139 MEQ/L Potassium Level 4.2 MEQ/L Chloride Level 105 MEQ/L Carbon Dioxide Level 25.8 MEQ/L Anion Gap 8 MEQ/L Estimat Glomerular Filtration Rate 97 ML/MIN Magnesium Level 2.2 MG/DL Troponin I LESS THAN 0.02 NG/ML LESS THAN 0.02 NG/ML LESS THAN 0.02 NG/ML Total Creatine Kinase 222 U/L 220 U/L Creatine Kinase MB 1.6 NG/ML 2.3 NG/ML Prothrombin Time 10.2 SEC Prothromb Time International Ratio 1.0 RATIO Activated Partial Thromboplast Time 26.1 SEC Imaging Last 24 hours Impressions Chest X-Ray 05/24/17 3557 Signed Impressions: Service Date/Time: May 17:56 - CONCLUSION: Normal examination. Rudolph Roman Jr., MD Assessment and Plan Problem List: (1) Cough ICD Codes: R05 - Cough Status: Acute (2) Shortness of breath ICD Codes: R06.02 - Shortness of breath Status: Acute (3) Tobacco abuse ICD Codes: Z72.0 - Tobacco use Status: Acute (4) Hypertension ICD Codes: I10 - Essential (primary) hypertension Status: Acute (5) Atypical chest pain ICD Codes: R07.89 - Other chest pain Status: Acute Plan: Chest pain secondary to cough (6) Bronchitis ICD Codes: J40 - Bronchitis, not specified as acute or chronic Plan: Started doxycycline Ellis Peterson MD May 25, 2017 12:52
== END 2017-05-25 15:29 | disposition home or self-care (01) ==
LOC: NEPC 17:17 → NEDA 20:35 → NEPFCDU 22:39
PROVIDERS: ADMIT Internal Medicine Interventional Cardiology; ATTEND Internal Medicine Interventional Cardiology
DX: R07.89 Other chest pain (principal); J40 Bronchitis, not specified as acute or chronic; J00 Acute nasopharyngitis [common cold]; I10 Essential (primary) hypertension; I25.10 Atherosclerotic heart disease of native coronary artery without angina pectoris; R94.31 Abnormal electrocardiogram [ECG] [EKG]; E78.5 Hyperlipidemia, unspecified; G40.909 Epilepsy, unspecified, not intractable, without status epilepticus; E11.9 Type 2 diabetes mellitus without complications; F17.200 Nicotine dependence, unspecified, uncomplicated; Z86.73 Personal history of transient ischemic attack (TIA), and cerebral infarction without residual deficits
CPT/HCPCS: 71045; 80048; 82550; 82552; 83735; 84484; 85025; 85610; 85730; 93005; 99285; G0378

== ENCOUNTER 2017-06-25 18:30 | Emergency (ER) | payer SELFPAY ==
[~2017-06-25 18:30] MED LIST: AMLO10 PO; DOXY100C PO
[2017-06-25 18:34] VITALS: BP 140/84; PULSE 94; RESP 16; TEMP 98.2; O2SAT 97
--- NOTE | 2017-06-25 19:00 | PD ---
HPI Chief Complaint: Injury Time Seen by Provider: 18:56 Travel History International Travel<30 days: No Contact w/Intl Traveler<30days: No Traveled to known affect area: No History of Present Illness HPI 46-year-old male presents for evaluation of right lower extremity pain. Symptoms started spontaneously a few weeks ago. He denies any injuries. Pain is an aching pain localized to the pretibial region of the right lower leg, constant, worse with walking or palpating it. He is concerned that he may have a DVT. He denies any recent travel or recent surgery. He denies any trauma. He has an abrasion to the right pretibial region but he does not know how he obtained that. He has no other complaints at this time. PFSH Past Medical History Arthritis: Yes Autoimmune Disease: No Blood Disorders: No Anxiety: No Heart Rhythm Problems: Yes (hypertension) Cancer: No Cardiac Catheterization: No Cardiovascular Problems: Yes (htn) High Cholesterol: No Chemotherapy: No Congestive Heart Failure: No Cerebrovascular Accident: Yes Diabetes: Yes (not currently taking medication) Diminished Hearing: No Endocrine: No Gastrointestinal Disorders: No GERD: No Glaucoma: No Genitourinary: No Hepatitis: No Hiatal Hernia: No Hypertension: Yes Immune Disorder: No Implanted Vascular Access Dvce: No Musculoskeletal: No Neurologic: Yes (DT'S) Psychiatric: No Reproductive: No Respiratory: No Myocardial Infarction: No Pancreatitis: Yes Radiation Therapy: No Seizures: Yes Thyroid Disease: No Ulcer: Yes PNEUMOCCOCAL Vaccine (Year): 2 Past Surgical History Coronary Artery Bypass Graft: No Genitourinary Surgery: No Oral Surgery: Yes (JAW) Pacemaker: No Other Surgery: No Social History Alcohol Use: Yes Tobacco Use: Yes Substance Use: No Allergies-Medications (Allergen,Severity, Reaction): Coded Allergies: penicillin G (Unverified Allergy, Mild, Rash, 12/19/16) naproxen (Unverified Adverse Reaction, Severe, N/V, 12/19/16) Reported Meds & Prescriptions Reported Meds & Active Scripts Active Doxycycline Hyclate 100 Mg Cap 100 Mg PO BID Reported Norvasc (Amlodipine Besylate) 10 Mg Tab 10 Mg PO DAILY Review of Systems Except as stated in HPI: all other systems reviewed are Neg Physical Exam Narrative GENERAL: Well-developed well-nourished male in no acute distress SKIN: Warm and dry. There is an abrasion to the anterior right zendejas. There is some nonspecific soft tissue swelling to the medial right lower pretibial region. This is tender to palpation. HEAD: Atraumatic. Normocephalic. EYES: Pupils equal and round. No scleral icterus. No injection or drainage. ENT: No nasal bleeding or discharge. Mucous membranes pink and moist. NECK: Trachea midline. No JVD. CARDIOVASCULAR: Regular rate and rhythm. No murmur appreciated. RESPIRATORY: No accessory muscle use. Clear to auscultation. Breath sounds equal bilaterally. GASTROINTESTINAL: Abdomen soft, non-tender, nondistended. Hepatic and splenic margins not palpable. MUSCULOSKELETAL: Skin as noted above with associated tenderness to palpation. There is no right ankle effusion. There is no pitting edema. The patient maintains full dorsi and plantar flexion of the right ankle. 2+ dorsalis pedis and posterior tibial pulses. NEUROLOGICAL: Awake and alert. No obvious cranial nerve deficits. Motor grossly within normal limits. Normal speech. Data Data Last Documented VS Vital Signs Date Time Temp Pulse Resp B/P (MAP) Pulse Ox O2 Delivery O2 Flow Rate FiO2 06/25/17 21:13 06/25/17 18:34 98.2 94 16 97 Orders Orders Tibia/Fibula (Ap/Lat) (06/25/17 ) Us Leg Venous Doppler (06/25/17 18:56) Ed Discharge Order (06/25/17 21:00) [facility] Medical Decision Making Medical Screen Exam Complete: Yes Emergency Medical Condition: Yes Medical Record Reviewed: Yes Differential Diagnosis Cellulitis, contusion, hematoma, stress fracture, DVT Narrative Course X-ray imaging of the right tibia-fibula was obtained in triage revealing CONCLUSION: Distal medial zendejas soft tissue swelling. No acute bony findings The patient's primary concern is possibility of DVT. Therefore right lower extremity ultrasound has been ordered. The patient was signed out pending ultrasound imaging, likely to disposition home negative. Kenneth Anderson Jun 25, 2017 19:00
--- NOTE | 2017-06-25 19:48 | RADRPT ---
EXAM DATE/TIME: 06/25/2017 18:47 [facility] COMPARISON: No previous studies available for comparison. INDICATIONS : Right tibia pain, denies injury MEDICAL HISTORY : Hypertension. Diabetes mellitus type II. Pancreatitis. SURGICAL HISTORY : None. ENCOUNTER: Initial ACUITY: 1 week PAIN SCORE: 10/10 LOCATION: Right Tibia FINDINGS: Two view examination of the right tibia demonstrates no evidence of fracture or dislocation. Bony mi neralization is normal. There is focal soft tissue swelling involving the medial lower leg. No eviden ce of underlying bony injury.. CONCLUSION: Distal medial zendejas soft tissue swelling. No acute bony findings Jaun Garcia MD on June 25, 2017 at 19:46 Board Certified Radiologist. This report was verified electronically.
--- NOTE | 2017-06-25 20:55 | RADRPT ---
EXAM DATE/TIME: 06/25/2017 19:20 [facility] COMPARISON: No previous studies available for comparison. INDICATIONS : Right leg pain. MEDICAL HISTORY : Stroke. Hypertension. Seizures. Ulcer. Pancreatitis. Arthritis. Claustrophobia. Diabetes. SURGICAL HISTORY : Jaw surgery. Right shoulder surgery. ENCOUNTER: Initial ACUITY: 4 - 6 days PAIN SCORE: 5/10 LOCATION: Right leg. TECHNIQUE: Venous ultrasound of the leg was performed from the inguinal ligament to the proximal calf. Real-michelle e, color Doppler and spectral tracing, compression and augmentation techniques were used. FINDINGS: There is normal compressibility of the deep venous system from the inguinal region to the proximal ca lf. No echogenic clot is seen in the lumen of the common femoral, femoral, popliteal, and posterior tibial veins. There is a normal response of the venous system to proximal and distal augmentation an d respiration. CONCLUSION: Normal examination. Jaun Garcia MD on June 25, 2017 at 20:54 Board Certified Radiologist. This report was verified electronically.
--- NOTE | 2017-06-25 21:02 | PD ---
Physical Exam Time Seen by Provider: 21:01 Narrative Please refer to previous providers documentation for details surrounding the patient's current visit. Data Data Last Documented VS Vital Signs Date Time Temp Pulse Resp B/P (MAP) Pulse Ox O2 Delivery O2 Flow Rate FiO2 06/25/17 21:13 06/25/17 18:34 98.2 94 16 97 Orders Orders Tibia/Fibula (Ap/Lat) (06/25/17 ) Us Leg Venous Doppler (06/25/17 18:56) Ed Discharge Order (06/25/17 21:00) [facility] Medical Record Reviewed: Yes Supervised Visit with FRANCISCA: No Narrative Course This patient is signed out to me with ultrasound of the right lower extremity pending. This is negative for DVT. Patient likely has a localized contusion or hematoma. He is encouraged to ice and elevate and to follow-up with a primary care provider. He agrees with this plan of care. He also agrees to return immediately with any acute worsening symptoms. Diagnosis Primary Impression: Contusion, lower leg Qualified Codes: S80.11XA - Contusion of right lower leg, initial encounter Referrals: Primary Care Physician Patient Instructions: Contusion in Adults (ED), General Instructions Additional Instruction: ICE AND ELEVATE FOLLOW UP WITH PRIMARY CARE PROVIDER RETURN TO ED WITH ACUTE WORSENING OF SYMPTOMS Med/Other Pt SpecificInfo: No Change to Meds Disposition: 01 DISCHARGE HOME Condition: Stable Kenisha Alaniz Jun 25, 2017 21:02
== END 2017-06-25 21:13 | disposition home or self-care (01) ==
LOC: NEPK 18:30
DX: S80.11XA Contusion of right lower leg, initial encounter (principal); I10 Essential (primary) hypertension; E11.9 Type 2 diabetes mellitus without complications; Z86.73 Personal history of transient ischemic attack (TIA), and cerebral infarction without residual deficits; Z72.0 Tobacco use; Z88.0 Allergy status to penicillin
CPT/HCPCS: 73590; 93971